=== PATIENT | female | born 1965 | race African-American/Black ===

== ENCOUNTER 2017-03-02 08:50 | Day surgery (SDC) | payer OTHER ==
[~2017-03-02] VITALS: Ht 160 cm; Wt 80.3 kg
--- NOTE | ~2017-03-02 | EGD ---
EGD REPORT [facility] [address] [address] NAME: MEG SUNSHINE : [birth year] STATUS : REG [facility]#: [id number] AGE: 51 ADM/REG DATE : 03/02/17 MR#: [id number] REPORT SERV DATE: 03/02/17 DICTATED BY: SRAVAN MRECADO DATE: 03/02/17 REPORT STATUS : Draft TRANSCRIBED BY: [facility] DATE: 03/02/17 Pulmonology Patient Name: Meg Sunshine Procedure Date: 03/02/2017 10:27 AM Date of : 1965 Attending MD: FORREST MERCADO MD Procedure Date No Time: 03/02/2017 Procedure: EBUS Navigational Bronchoscopy Indications: RML lung nodule Providers: FORREST MERCADO MD Referring MD: Ismael Humphrey Medicines: Lidocaine 2% 20 mL Complications: No immediate complications Procedure: Pre-Anesthesia Assessment: - ASA Grade Assessment: III - A patient with severe systemic disease. - A History and Physical has been performed. Patient meds and allergies have been reviewed. The risks and benefits of the procedure and the sedation options and risks were discussed with the patient. All questions were answered and informed consent was obtained. Patient identification and proposed procedure were verified prior to the procedure by the physician and the nurse in the pre-procedure area in the procedure room. Mental Status Examination: normal. Airway Examination: normal oropharyngeal airway. Respiratory Examination: poor air movement. CV Examination: normal and RRR, no murmurs, no S3 or S4. ASA Grade Assessment: III - A patient with severe systemic disease. After reviewing the risks and benefits, the patient was deemed in satisfactory condition to undergo the procedure. The anesthesia plan was to use general anesthesia. Immediately prior to administration of medications, the patient was re-assessed for adequacy to receive sedatives. The heart rate, respiratory rate, oxygen saturations, blood pressure, adequacy of pulmonary ventilation, and response to care were monitored throughout the procedure. The physical status of the patient was re-assessed after the procedure. After obtaining informed consent, the Bronchoscope was introduced through the mouth, via the endotracheal tube (the patient was intubated for the procedure) and advanced to the tracheobronchial tree. the BF [id number] was introduced through the mouth, via the endotracheal tube (the patient was intubated for the procedure) and advanced to the tracheobronchial tree. EGD REPORT [address] [address] NAME: MEG SUNSHINE : [birth year] STATUS : REG [facility] [place] PAT#: [id number] AGE: 51 ADM/REG DATE : 03/02/17 MR#: [id number] REPORT SERV DATE: 03/02/17 DICTATED BY: SRAVAN MERCADO DATE: 03/02/17 REPORT STATUS : Draft [facility]ANS[facility] BY: [facility] DATE: 03/02/17 The procedure was accomplished without difficulty. The patient tolerated the procedure well. Findings: The endotracheal tube is in good position. The visualized portion of the trachea is of normal caliber. The peña is sharp. The tracheobronchial tree was examined to at least the first subsegmental level. Bronchial mucosa and anatomy are normal; there are no endobronchial lesions, and no secretions. EBUS TBNA of lymph node level 11L x 5 passes for cytology EBUS TBNA of lymph node level 7 x 4 passes for cytology EBUS TBNA of lymph node level 4R x 4 passes for cytology EBUS TBNA of lymph node level 11R x 4 passes for cytology Using SuperDimension Edge catheter 180 abd ultimately the hybrid scope, peripheral probe EBUS 17s, and fluoroscopy, I performed the following biopsies: RML lung nodule transbronchial needle aspirates x 8 passes for cytology RML lung nodule transbronchial brush biopsy x 2 pass for cytology RML lung nodule transbronchial forcep biopsies x 2 passes for histopathology GUANAKO endobronchial brush biopsies were performed for the Percept[employer] Trial Bronchoalveolar lavage was performed in the RML medial segment (B5) of the lung and sent for cell count, cytology, bacterial culture, viral smears \T\ culture, and fungal and AFB analysis. 180 mL of fluid were instilled. 30 mL were returned. The return was blood-tinged and cellular. There were no mucoid plugs in the return fluid Impression: Rapid On-Site Evaluation (ZAINA): Preliminary cytology is suggestive of a benign lesion (final results are pending). Biopsy was difficult because patient developed RML atalectasis making it difficult to visualize the lesion. Patient enrolled in [employer] Registry\E\, Oncocyte and BodyVision 3D Flouro trials. Recommendation: - Await test results. - Chest X-ray post-procedure. - Follow up with referring physician. Attending Participation: I personally performed the entire procedure. FORREST MERCADO MD 03/02/2017 12:33 PM This report has been signed electronically. Number of Addenda: 0 Note Initiated On: 03/02/2017 10:27 AM [address] [id number]
[~2017-03-02 08:50] MED LIST: ABILIFY5 PO; ALBUTEROL0.63 MG/3 INH; BEN25 PO; LAMICTAL25 PO; LIDO5OINT TOP; LOP25 PO; NORCO1 TA2 PO; PRILO PO; PROAIR HFA INH; PROZAC PO; SEROQUEL1C PO; SEROQUEL300 MG PO; SPIRIVA INH; SYMBICORT 160/41 INH INH; ZANAFLEX 4 MG TA4 MG PO; ZOCOR20 PO
[2017-03-02 09:13] LABS: HEMATOCRIT 42.5 % (36.0-48.0); HEMOGLOBIN 13.8 g/dL (12.0-16.0); MEAN CORPUS HGB CONC 32.5 g/dL (32.0-36.0); MEAN CORPUSCULAR HEMOGLOB 27.8 pg (26.0-34.0); MEAN CORPUSCULAR VOLUME 85.7 fL (80-100); MEAN PLATELET VOLUME 9.2 fL (9.2-13.0); PLATELET COUNT 270 10/3/uL (150-400); RBC DISTRIBUTION WIDTH 15.6 % (12.0-16.0); RED CELL COUNT 4.96 10/6/uL (4.0-5.6)
[2017-03-02 09:15] LABS: MANUAL DIFF YES %; WHITE BLOOD CELLS 12.8 10/3/uL (4.5-10.5)
[2017-03-02 09:18] LABS: INTERNATIONAL NORMAL RATI 0.9 UNITS (-); PARTIAL THROMBO TIME 25.7 SEC (22.5-37.2); PROTIME (NOT ORD) 12.5 SEC (12.0-14.5)
[2017-03-02 09:22] LABS: BUN (BLOOD UREA NITROGEN) 28 MG/DL (6-23); CHLORIDE, SERUM 104 MMOL/L (96-112); CO2 (CARBON DIOXIDE) 29 MMOL/L (24-34); CREATININE 1.15 MG/DL (0.55-1.02); GFR AFRICAN AMERICAN 64 ML/MIN (>=60); GFR NON AFRICAN AMERICAN 55 ML/MIN (>=60); GLUCOSE, SERUM 86 MG/DL (60-99); POTASSIUM, SERUM 4.5 MMOL/L (3.5-5.3); SODIUM, SERUM 139 MMOL/L (135-148)
[2017-03-02 09:35] LABS: BAND NEUTROPHILS 1 %; IMMATURE GRANS ABSOLUTE (CALC) 0.13 10/3/uL (0.0-0.11); LYMPHOCYTES 43 %; METAMYELOCYTES 1 %; MONOCYTES 5 %; MONOCYTES ABSOLUTE (CALC) 0.64 10/3/uL (0.21-1.20); NEUTROPHILS ABSOLUTE (CALC) 6.53 10/3/uL (2.02-8.40); SEGMENTED NEUTROPHIL (0) 50 %; TOTAL NUCLEATED CELLS 100
[2017-03-02 09:36] LABS: PLATELET ESTIMATE ADQ (ADEQUATE); RBC MORPHOLOGY NORM (NORMAL)
[2017-03-02 09:42] LABS: SMUDGE CELLS OCC
[2017-03-02 16:27] LABS: BD FL LYMPH (NOT ORD) 5 %; BF BASO (NOT OF) 0 %; BF LARGE MONONUCLEAR 85 %; BODY FLUID EOS (NOT ORD) 0 %; BODY FLUID SEG (NOT ORD) 10 %
[2017-03-02 16:47] LABS: BD FL SOURCE (NOT ORD) BAL; BF TOTAL CELL CT (NOT ORD 438 /MM3; BODY FLUID RBC (NOT ORD) 8000 /MM3
== END 2017-03-02 23:59 | disposition home or self-care (01) ==
LOC: DMU 08:50
PROVIDERS: Anesthesiology; Internal Medicine
PROC: 07974ZX Drainage of Thorax Lymphatic, Percutaneous Endoscopic Approach, Diagnostic (ICD-10-PCS; principal; 2017-03-02 09:30)
PROC: BB4BZZZ Ultrasonography of Pleura (ICD-10-PCS; 2017-03-02 09:30)
PROC: 0BBD8ZX Excision of Right Middle Lung Lobe, Via Natural or Artificial Opening Endoscopic, Diagnostic (ICD-10-PCS; 2017-03-02 09:30)
PROC: 0BB38ZX Excision of Right Main Bronchus, Via Natural or Artificial Opening Endoscopic, Diagnostic (ICD-10-PCS; 2017-03-02 09:30)
PROC: 0B9D8ZX Drainage of Right Middle Lung Lobe, Via Natural or Artificial Opening Endoscopic, Diagnostic (ICD-10-PCS; 2017-03-02 09:30)
DX: R91.1 Solitary pulmonary nodule (principal); I10 Essential (primary) hypertension; J44.9 Chronic obstructive pulmonary disease, unspecified; F17.210 Nicotine dependence, cigarettes, uncomplicated; F32.9 Major depressive disorder, single episode, unspecified; Z88.5 Allergy status to narcotic agent; Z88.6 Allergy status to analgesic agent; Z79.899 Other long term (current) drug therapy
CPT/HCPCS: 71010; 80048; 85025; 85610; 85730; 87015; 87070; 87102; 87116; 87205; 88112; 88172; 88173; 88305; 88333; 89051; 93005; C1769; J2250; J2370; J2405; J2710; J3010